=== PATIENT | female | born 1975 | race Caucasian/White ===

== ENCOUNTER 2024-08-16 00:44 | Emergency (ER) | payer BC, SELFPAY ==
[2024-08-16 00:44] VITALS: BMI 56.8
[2024-08-16 01:02] VITALS: BP 177/97; PULSE 76; RESP 18; TEMP 36.6; O2SAT 96
--- NOTE | 2024-08-16 01:11 | PD.EDRME ---
Rapid Medical Screening Exam RME Arrival date/time: 08/16/24 00:44 48 year old female present to Ed for c/o of dizziness and low blood glucose. I have greeted and performed a focused initial assessment of this patient. A comprehensive ED assessment and evaluation of the patient, analysis of all test results, and completion of the medical decision making process will be conducted by additional ED providers. Chief Complaint: Dizziness Time Seen by Provider: 08/16/24 00:48 Vital signs: Vital Signs Temperature 97.9 F 08/16/24 01:02 Pulse Rate 76 08/16/24 01:02 Respiratory Rate 18 08/16/24 01:02 Blood Pressure 177/97 H 08/16/24 01:02 Pulse Oximetry (%) 96 08/16/24 01:02 Oxygen Delivery Method Room Air 08/16/24 01:02
--- NOTE | 2024-08-16 01:12 | EKG_ITS ---
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
[2024-08-16 01:42] LABS: Basophils # (Auto) 0.1 Thou/mm3 (0.0-0.2); Basophils % (Auto) 2 % (0-2.5); Eosinophils % (Auto) 12 % (0-10); Hematocrit 42.8 % (36.0-46.0); Hemoglobin 14.3 g/dL (12.0-16.0); Immature Granulocytes % (Auto) 0 % (0-0); Immature Granulocytes Auto 0.02 Thou/mm3 (0.00-0.00); Lymphocytes # (Auto) 1.9 Thou/mm3 (1.0-4.8); Lymphocytes % (Auto) 23 % (10-50); Mean Corpuscular HGB Conc 33.4 g/dl (31.0-37.0); Mean Corpuscular Hemoglobin 27.4 pg (25.0-35.0); Mean Corpuscular Volume 82 fL (80-100); Monocytes # (Auto) 0.5 Thou/mm3 (0.0-0.8); Monocytes % (Auto) 6 % (0-12); Neutrophils # (Auto) 4.8 Thou/mm3 (1.8-7.7); Neutrophils % (Auto) 58 % (37-80); Nucleated Red Blood Cell % 0 /100 WBC (0); Platelet Count 243 Thou/mm3 (140-440); RDW Standard Deviation 39.9 fL (36.4-46.3); Red Blood Count 5.22 Miln/mm3 (4.00-5.20); White Blood Count 8.2 Thou/mm3 (3.6-11.0)
[2024-08-16 01:57] LABS: Alanine Aminotransferase 20 U/L (10-49); Albumin, Serum 4.2 gm/dL (3.5-5.0); Albumin/Globulin Ratio 1.4 (1.2-2.2); Alkaline Phosphatase 113 U/L (46-116); Anion Gap 7 (7-16); Aspartate Amino Transferase 21 U/L (0-34); BUN/Creatinine Ratio 23 Ratio (12-20); Bilirubin,Total 0.7 mg/dL (0.3-1.2); Blood Urea Nitrogen 23 mg/dL (9-23); Calcium 10.3 mg/dL (8.3-10.6); Calcium (Corrected) 10.3 mg/dL (8.5-10.1); Carbon Dioxide 30.4 mMol/L (20.0-31.0); Chloride 105 mMol/L (98-107); Estimated Creatinine Clearance 117.7 mL/min (>60); Globulin 3.1 gm/dL (2.3-3.5); Glucose 120 mg/dL (74-106); Osmolality,Calculated 287 (275-295); Potassium 3.4 mMol/L (3.4-5.1); Sodium 142 mMol/L (136-145); Total Protein 7.3 gm/dL (5.7-8.2); Troponin I < 0.020 ng/mL (0.0-0.045); eGFR > 60 See Note
[2024-08-16 02:08] LABS: HCG,Qualitative Serum Negative
--- NOTE | 2024-08-16 04:16 | EDNOTE_ITS ---
ED Dizzyness RME/HPI General Chief Complaint: Dizziness Stated Complaint: DIZZINESS AND LOW BLOOD SUGAR Time Seen by Provider: 08/16/24 00:48 Arrival date/time: 08/16/24 00:44 RME / HPI RME / HPI Narrative: 08/16/24 00:44 48 year old female present to Ed for c/o of dizziness and low blood glucose. I have greeted and performed a focused initial assessment of this patient. A comprehensive ED assessment and evaluation of the patient, analysis of all test results, and completion of the medical decision making process will be conducted by additional ED providers. ---- Dr. Stone?s Main ED Evaluation: 48yo female with a history of DM presents to the ED for a chief complaint of dizziness. Patient states she was working a double shift at work tonight when she suddenly started feeling dizzy, lightheaded, and nauseous. 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 She denies any falls or injuries. Denies any other associated symptoms. Patient states she feels better. Related Data Home Medications ?Medication ?Instructions ?Recorded ?Confirmed INFLAMMATION PILL ##0 10/31/13 INHALER - ASTHMA ##0 10/31/13 LORATADINE (ALLERGY) ##0 10/31/13 Benazepril Hcl * (LOTENSIN *) 10 mg PO HS #0 tabs 01/11/15 Hydrocodone/Acetaminophen * (NORCO 1 tab PO Q4H PRN PAIN #0 tabs 01/11/15 5/325 *) alprazolam 1 mg tablet (Xanax) 1 mg PO BID #0 tabs 01/11/15 Previous Rx's ?Medication ?Instructions ?Recorded albuterol sulfate 90 mcg/actuation 2 puff inhalation Q6HR PRN 11/06/15 aerosol inhaler (ProAir HFA) SHORTNESS OF BREATH #1 inh albuterol sulfate 90 mcg/actuation 2 puff inhalation Q6H PRN 05/22/19 aerosol inhaler (ProAir HFA) shortness of breath or wheezing #18 grams beclomethasone dipropionate 80 1 inh inhalation Q12H #10.6 grams 05/22/19 mcg/actuation HFA breath activated aerosol (Qvar RediHaler) ipratropium bromide 17 1 puff inhalation Q6H #12.9 grams 05/22/19 mcg/actuation HFA aerosol inhaler (Atrovent HFA) Allergies Allergy/AdvReac Type Severity Reaction Status Date / Time furosemide Allergy Unknown Unverified 05/22/19 20:19 BETABLOCKERS Allergy Unknown Uncoded 05/22/19 20:19 Review of Systems Review of Systems Systems Reviewed: All systems reviewed, normal except as documented Past Medical History Past Medical History CARDIAC: Negative Congestive Heart Failure RESPIRATORY: Positive Chronic Obstructive Pulmonary Disease (COPD) and Asthma GENITOURINARY: Negative Renal Disease ENDOCRINE: Negative Diabetes Mellitus Type 1 or Diabetes Mellitus Type 2 PSYCHO/SOCIAL: Positive Psychiatric Problems, Depression, Anxiety and Post Traumatic Stress Disorder Social History SMOKING STATUS: Never smoker ED Exam Narrative Physical exam: GENERAL APPEARANCE: alert and oriented x 4, well-developed, well-nourished, no acute distress VITALS: All vitals were reviewed and the pulse ox is 96% on room air, which is normal according to my interpretation. HEENT: Normocephalic, atraumatic; pupils equal, round, reactive to light; EOMI; mucous membranes pink, moist; oropharynx clear NECK: Supple LUNGS: CTABL; no wheezes, no rales, no rhonchi HEART: Regular rate, regular rhythm; normal S1, S2; no murmurs ABDOMEN: non distended; normal BS; soft, no tenderness, no guarding, no rebound; no masses, no organomegaly, no hernia BACK: no CVA tenderness EXTREMITIES: atraumatic; no edema NEUROLOGIC: awake; alert and oriented x4; cranial nerves II-XII grossly intact; no focal sensory or motor deficits PSYCHIATRIC: appropriate mood and affect SKIN: warm, dry, normal color; no rashes Course Quality Measures none Orders Category Date Time Status Blood glucose [Bedside Blood Glucose] NOW Care 08/16/24 01:12 Active EKG (ED ONLY) *Do not use* NOW Care 08/16/24 01:12 Completed EKG (ED Only) Stat Exams 08/16/24 01:12 Draft CBC Stat Lab 08/16/24 01:29 Completed CMP [Comprehensive Metabolic Panel] Stat Lab 08/16/24 01:29 Completed HCG,Qualitative Serum Stat Lab 08/16/24 01:29 Completed Troponin I Stat Lab 08/16/24 01:29 Completed Vital Signs Vital signs: Vital Signs Temperature 97.9 F 08/16/24 01:02 Pulse Rate 76 08/16/24 01:02 Respiratory Rate 18 08/16/24 01:02 Blood Pressure 177/97 H 08/16/24 01:02 Pulse Oximetry (%) 96 08/16/24 01:02 Oxygen Delivery Method Room Air 08/16/24 01:02 Dizziness MDM Narrative MDM Narrative:: Scribe Attestation: 08/16/24 Maryellen Miller am scribing for and in the presence of Dr. Stone. Patient data External records reviewed:: [facility] previous records (Per chart review, patient has no previous ED visits or admissions to this facility.) Clinical information provided by:: patient Social determinants that could affect healthcare access:: mental health Patient has the following chronic illnesses:: COPD, asthma, DM, anxiety How is presenting disease/condition affected by chronic disease/condition?: caused by Evaluation data The following diagnostics were reviewed and interpreted by me:: lab results and EKG tracing(s) Lab and/or radiology exams considered but not ordered:: none Interpretation Summary: CBC is normal, Glucose is 120, HCG is negative, according to my interpretation. EKG done at 0124, NSR, rate of 79, left axis deviation, no ectopy, Q wave in lead III, no STEMI, according to my interpretation. Medications / Prescriptions Medications or Prescriptions considered but not ordered:: none Medication administrations:: see above, if any Consultations Consultation(s) initiated? (list below): No Diagnosis Dizziness Differential Diagnosis: other (hypoglycemia, dehydration, electrolyte abnormality) Most likely diagnosis given after review of the tests above:: see below Admission Indicated Admission indicated?: not indicated Admission Request Was there a request for admission?: No Disposition Plan Disposition Plan: Discharge Discharge Attestation Discharge Attestation: The patient and all family members were given an opportunity to ask questions and understood the discharge instructions. Discharge instructions specifically effects, indications for sooner follow up or return to the emergency department, and the expected course of current diagnosis. Patient condition: Stable Discharge Plan Plan Patient Disposition: HOME (Self Care) Disposition Comment: Stable for discharge Patient condition on transfer: Stable Prescriptions/Referrals Prescriptions/Med Rec: No Action albuterol sulfate [ProAir HFA] 90 mcg/actuation HFA aerosol inhaler 2 puff INH Q6H PRN (Reason: shortness of breath or wheezing) Qty: 18 0RF Atrovent HFA 17 mcg/actuation HFA aerosol inhaler 1 puff INH Q6H Qty: 12.9 0RF Qvar RediHaler 80 mcg/actuation HFA aerosol breath activated 1 inh INH Q12H Qty: 10.6 0RF INFLAMMATION PILL Qty: 0 INHALER - ASTHMA Qty: 0 LORATADINE (ALLERGY) 10 MG tablet Qty: 0 alprazolam [Xanax] 1 MG tablet 1 mg PO BID Qty: 0 Benazepril Hcl * (LOTENSIN *) 10 MG tablet 10 mg PO HS Qty: 0 Hydrocodone/Acetaminophen * (NORCO 5/325 *) 1 TAB tablet 1 tab PO Q4H PRN (Reason: PAIN) Qty: 0 albuterol sulfate [ProAir HFA] 8.5 GM HFA aerosol inhaler 2 puff Inhalation Q6HR PRN (Reason: SHORTNESS OF BREATH) Qty: 1 0RF Referrals: Katy Cole MD [Primary Care Provider] - In 1 week Problem List Clinical Impression: Hypoglycemia Patient/Caregiver Discharge Instructions Discharge Activity: activity as tolerated Education Materials: Hypoglycemia (Low Blood Sugar), ED Hypoglycemia Oral Diabetic ... Additional Instructions: Please return to the emergency department if you notice have any worsening or any further medical problems Otherwise you should follow-up with your primary care doctor within the next several days Print Language: Faroese Stand Alone Forms: Angelica Award Info., Work/School Release, Patient Portal Info Letter
[2024-08-16 04:24] VITALS: BP 174/99; PULSE 64; RESP 15; TEMP 36.6; O2SAT 98
== END 2024-08-16 04:33 | disposition home or self-care (01) ==
PROVIDERS: Physician Assistant; Emergency Provider Emergency Medicine; PCP Family Medicine
DX: E11.649 Type 2 diabetes mellitus with hypoglycemia without coma (principal); J44.9 Chronic obstructive pulmonary disease, unspecified; F41.9 Anxiety disorder, unspecified
CPT/HCPCS: 36415; 80053; 84484; 84703; 85025; 93005; 99283

== ENCOUNTER → 2024-09-28 | Outpatient (CLI) | payer MEDICARE, SELFPAY | END | disposition home or self-care (01) | PROVIDERS: PCP Family Medicine; Referring Provider Family Medicine; Visit Provider Family Medicine | DX: N39.0 Urinary tract infection, site not specified (principal) | CPT/HCPCS: 87077; 87086; 87186 ==

== ENCOUNTER → 2024-11-25 | Outpatient (CLI) | payer BC, SELFPAY ==
[2024-11-25 10:49] LABS: Collection Type, Urine Clean Catch
[2024-11-25 11:08] LABS: Glucose Estimated Average 97 mg/dL (80-131)
[2024-11-25 11:13] LABS: Creatinine MALB Rnd Ur 136 mg/dL (30-125); Microalbumin Creat Ratio 49 mg/gCrea (<30); Microalbumin, Random Urine 66 mg/L (0-300)
[2024-11-25 11:16] LABS: Vitamin B12 673 pg/mL (211-911); Vitamin D 25 Hydroxy Total 44.7 ng/mL (7.3-40.2)
[2024-11-25 11:25] LABS: Alanine Aminotransferase 22 U/L (10-49); Albumin, Serum 3.7 gm/dL (3.5-5.0); Albumin/Globulin Ratio 1.2 (1.2-2.2); Alkaline Phosphatase 90 U/L (46-116); Anion Gap 11 (7-16); Aspartate Amino Transferase 24 U/L (0-34); BUN/Creatinine Ratio 16 Ratio (12-20); Bilirubin,Total 1.1 mg/dL (0.3-1.2); Blood Urea Nitrogen 14 mg/dL (9-23); Calcium 9.2 mg/dL (8.3-10.6); Calcium (Corrected) 9.4 mg/dL (8.5-10.1); Carbon Dioxide 24.4 mMol/L (20.0-31.0); Cardiac Risk Estimate 3.7 RATIO (3.7-5.6); Chloride 108 mMol/L (98-107); Cholesterol 167 mg/dL (132-200); Creatinine (Component) 0.9 mg/dL (0.6-1.3); Glucose 92 mg/dL (74-106); HDL Cholesterol 45 mg/dL (40-60); LDL Cholesterol,Calculated 93 mg/dL (0-130); Osmolality,Calculated 285 (275-295); Potassium 4.1 mMol/L (3.4-5.1); Sodium 143 mMol/L (136-145); Total Protein 6.7 gm/dL (5.7-8.2); Triglycerides 147 mg/dL (30-150); eGFR > 60 See Note
[2024-11-25 11:39] LABS: Bacteria,Urine 4+; Bilirubin,Urine Negative (Negative); Blood,Urine 1+ (Negative); Color,Urine Yellow (Lt Yel-Yel); Glucose, Urine Negative (Negative); Ketones,Urine Negative (Negative); Leukocyte Esterase,Urine Positive (Negative); Nitrite,Urine Positive (Negative); PH,Urine 6.5 (5.0-7.0); Protein,Urine Trace (Neg - Trace); RBC,Urine 29 /hpf (0-3); Squamous Epithelial Cell,Urine 4 /hpf (0-5); Urobilinogen,Urine Negative mg/dL (0.0-1.0); WBC,Urine 227 /hpf (0-5)
[2024-11-25 12:00] LABS: Clarity,Urine Hazy (Clear/Hazy); Culture Indicated,Urine Yes
== END | disposition home or self-care (01) ==
PROVIDERS: PCP Family Medicine; Referring Provider Physician Assistant; Visit Provider Physician Assistant
DX: Z00.00 Encounter for general adult medical examination without abnormal findings (principal); I10 Essential (primary) hypertension; E55.9 Vitamin D deficiency, unspecified; E78.5 Hyperlipidemia, unspecified; E11.9 Type 2 diabetes mellitus without complications
CPT/HCPCS: 36415; 80053; 80061; 81001; 82043; 82306; 82570; 82607; 83036; 84443; 87077; 87086; 87186

== ENCOUNTER 2024-12-20 11:18 | Outpatient (AMB) | payer BC, SELFPAY ==
[2024-12-20 11:43] VITALS: BP 123/82; PULSE 70; RESP 14; TEMP 35.8; O2SAT 95; BMI 53.8
--- NOTE | 2024-12-20 11:43 | AMB.GYNCLNOT ---
Vital Signs 12/20/24 11:43 Height 1.78 m Height Method Stated Weight 170.154 kg Weight Measurement Method Standing Scale BMI 53.8 BP 123/82 Blood Pressure Source Automatic Cuff Blood Pressure Location Left Upper Arm Position Sitting Respiration 14 Pulse 70 Pulse Source Monitor Temp 96.5 F L Temp Source Oral Pulse Oximetry (%) 95 Oxygen Delivery Method Room Air Allergies/Home Meds Allergies & Medications Allergies furosemide Allergy (Unknown, Verified 12/20/24 11:45) BETABLOCKERS Allergy (Unknown, Uncoded 12/20/24 11:45) Medication Reconciliation INFLAMMATION PILL ##0 10/31/13 [History Confirmed 12/20/24] INHALER - ASTHMA ##0 10/31/13 [History Confirmed 12/20/24] LORATADINE (ALLERGY) ##0 10/31/13 [History Confirmed 12/20/24] Benazepril Hcl * (LOTENSIN *) 10 mg PO HS #0 tabs 01/11/15 [History Confirmed 12/20/24] Hydrocodone/Acetaminophen * (NORCO 5/325 *) 1 tab PO Q4H PRN PAIN #0 tabs 01/11/15 [History Confirmed 12/20/24] alprazolam 1 mg tablet (Xanax) 1 mg PO BID #0 tabs 01/11/15 [History Confirmed 12/20/24] albuterol sulfate 90 mcg/actuation aerosol inhaler (ProAir HFA) 2 puff inhalation Q6HR PRN SHORTNESS OF BREATH #1 inh 11/06/15 [Rx Confirmed 12/20/24] albuterol sulfate 90 mcg/actuation aerosol inhaler (ProAir HFA) 2 puff inhalation Q6H PRN shortness of breath or wheezing #18 grams 05/22/19 [Rx Confirmed 12/20/24] beclomethasone dipropionate 80 mcg/actuation HFA breath activated aerosol (Qvar RediHaler) 1 inh inhalation Q12H #10.6 grams 05/22/19 [Rx Confirmed 12/20/24] ipratropium bromide 17 mcg/actuation HFA aerosol inhaler (Atrovent HFA) 1 puff inhalation Q6H #12.9 grams 05/22/19 [Rx Confirmed 12/20/24] Intake Visit Data Collection New Patient or Established: Established Patient (seen at [facility] within 3 years) Reason for Visit:: Follow-up for abnormal Pap smear results Seen by Clinical Staff ONLY (RN/MA): No Director Of Market Analysis Required: No Do You Feel Safe at Home: Yes Authorities Contacted: N/A PCP or OBGYN visit in last 3 months: Yes Hx Now: No Are you currently on any form of Control: No Pain Present Currently: No Pain Scale Used: Alexandra-Heck/Numerical Pain scale:: 0 Smoking Status Smoking Status: Never smoker Diagnostic Technologist history Diagnostic Technologist History Menstrual regularity: irregular Flow: heavy Monthly: No How many days does period last: 7 Age at menarche: 14 Currently sexually active: Yes Questionnaires Covid-19 Vaccine Questionnaire Has patient been vacinated for Covid-19 Have you been vacinated for Covid-19: Yes PHQ-9 PHQ-2 Over the last 2 weeks, how often have you been bothered by any of the following problems? 1. Little interest or pleasure in doing things: not at all 2. Feeling down, depressed, or hopeless: not at all Total score: 0 PHQ-9 3. Trouble falling or staying asleep, or sleeping too much: Not at all 4. Feeling tired or having little energy: Not at all 5. Poor appetite or overeating: Not at all 6. Feeling bad about yourself - or that you are a failure or have let yourself or your family down: Not at all 7. Trouble concentrating on things, such as reading the newspaper or watching television: Not at all 8. Moving or speaking so slowly that other people could have noticed? - Or the opposite - being so fidgety or restless that you have been moving around a lot more than usual: not at all 9. Thoughts that you would be better off or of hurting yourself in some way: Not at all Total score: 0 Source: Developed by Drs. Karthikeyan Tan, Mimi Jimenez, Vitaliy Langley and colleagues, with an educational anurag from [employer]. Depression screen completed yes Social History Living Situation History Marital Status: Single Lives With: Children Housing: House Tobacco History Smoking Status: Never smoker Second Hand Smoke Exposure: No Alcohol History Alcohol Intake: Never Domestic Abuse History Do You Feel Safe at Home: Yes Past Medical History Past Medical History Have you ever been diagnosed with any of the following: Cardiology Problems Congestive Heart Failure: No Hypertension: Yes Respiratory Problems Chronic Obstructive Pulmonary Disease (COPD): Yes Asthma: Yes Genital/Urinary Problems Renal Disease: No Reproductive Problems Previous Pregnancies: Yes Endocrine Problems Diabetes Mellitus Type 1: No Diabetes Mellitus Type 2: Yes Psychologic Problems Depression: Yes Anxiety: Yes Post Traumatic Stress Disorder: Yes Surgical History Additional Surgical History: c section History of Present Illness HPI Narrative Alicia presents for follow-up of an abnormal Pap smear result. This is her second abnormal Pap smear, with the most recent one performed in July 2023 and resulted in August 2023. The results showed low-grade squamous intraepithelial lesions (LSIL), with the possibility of high-grade lesions not excluded. Additionally, HPV subtypes 18 and 45 were positive. The patient reports that after her previous abnormal Pap smear, she was instructed to have a repeat Pap after one year. She was supposed to see another filter plant operator for follow-up, but she did not pursue this due to a negative experience with the office staff at Dr. Murphy's office ([facility]). The patient mentions a family history of cervical cancer in her mother, though she understands this is not hereditary. She also notes a family history of breast cancer in her maternal grandmother. 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, diagnosed July 2023 - Previous abnormal Pap smear Medications and Supplements - Diclofenac - Ibuprofen Family History - Mother: History of cervical cancer - Maternal grandmother: History of breast cancer Social History - Living Situation: Patient's daughter can provide transportation for medical procedures - Family Structure: Has a daughter Exam General General Appearance: alert, in no apparent distress and healthy appearing Head Head exam: atraumatic Neck Neck exam: Present normal inspection and trachea midline Chest Chest inspection: Present normal inspection and symmetric chest wall rise External exam: Present normal external exam; Absent tenderness Neuro Neurological exam: Present oriented X3 Psych Psychiatric exam: Present normal affect and normal mood Results Objective Laboratory: Laboratory, Imaging, and Diagnostic Test Results - Date: July 2023 (resulted August 2023) - Pap smear: Abnormal - Squamous intraepithelial lesions, low grade, cannot exclude high grade - HPV test: Positive - Subtypes 18 and 45 positive - Previous results: - Pap smear (2022): HPV-positive Assessment & Plan Diagnosis / Problem List (1) HGSIL (high grade squamous intraepithelial lesion) on Pap smear of cervix: Status: Acute (2) High risk HPV infection: Status: Acute (3) Low grade squamous intraepithelial lesion on cytologic smear of cervix (LGSIL): Status: Acute (4) Personal history of cervical dysplasia: Status: Acute Plan Alicia, a female patient with a history of abnormal Pap smears, presents for follow-up of recent abnormal Pap smear results showing low-grade squamous intraepithelial lesions (LSIL) with HPV 18 and 45 positivity. Abnormal Pap smear with HPV 18 and 45 positivity Assessment: Patient has a history of two abnormal Pap smears, with the most recent one from July 2023 showing low-grade squamous intraepithelial lesions (LSIL), cannot exclude high-grade lesions. HPV subtypes 18 and 45 were positive. These findings, especially the presence of high-risk HPV subtypes, warrant further evaluation and management to prevent progression to cervical cancer. Plan: - Perform cone biopsy/LEEP procedure - Outpatient procedure to be done in hospital setting - Use colposcope for cervical examination and biopsy of abnormal areas - Send excised tissue for pathological examination - Obtain insurance authorization for the procedure - Schedule procedure within 1-2 weeks - Arrange for post-procedure transportation due to sedation - Discuss sedation options: - Propofol or ketamine if minimal sedation desired - Post-procedure pain management: - Prescribe diclofenac or ibuprofen - Follow-up: - Annual Pap smears after procedure Office Procedures OB Clinic LOC & Office Proc's Nursing/Assessment Patient Status: Established Patient OB Clinic Nursing Assessment: Medication Reconciliation, Update PMH in EMR and Vital Signs OB Clinic Coordination of Care: Complex Care and Chronic Disease 1-5, Consent,records obtained, informed consent, Education Simp Pt/Fam, Lab and Imaging orders, Results/Orders obtained and Staff clarify orders Established Patient Charge Established Patient Point Assignment: 105 Established Patient Point Charge: EP Level 3 (80-115)
== END 2024-12-20 11:56 | disposition home or self-care (01) ==
LOC: HODSOBC 11:18
PROVIDERS: PCP Obstetrics & Gynecology; Referring Provider Obstetrics & Gynecology; Supervising Provider Obstetrics & Gynecology; Visit Provider Obstetrics & Gynecology
DX: R87.612 Low grade squamous intraepithelial lesion on cytologic smear of cervix (LGSIL) (principal); R87.810 Cervical high risk human papillomavirus (HPV) DNA test positive; Z87.410 Personal history of cervical dysplasia; Z80.49 Family history of malignant neoplasm of other genital organs; Z80.3 Family history of malignant neoplasm of breast
CPT/HCPCS: 99213; G0463

== ENCOUNTER → 2025-04-21 | Outpatient (CLI) | payer BC, SELFPAY ==
[2025-04-21 10:55] LABS: Basophils # (Auto) 0.1 Thou/mm3 (0.0-0.2); Basophils % (Auto) 2 % (0-2.5); Eosinophils # (Auto) 1.2 Thou/mm3 (0.0-0.5); Eosinophils % (Auto) 19 % (0-10); Hematocrit 43.6 % (36.0-46.0); Hemoglobin 14.1 g/dL (12.0-16.0); Immature Granulocytes Auto 0.00 Thou/mm3 (0.00-0.00); Lymphocytes # (Auto) 1.5 Thou/mm3 (1.0-4.8); Lymphocytes % (Auto) 24 % (10-50); Mean Corpuscular HGB Conc 32.3 g/dl (31.0-37.0); Mean Corpuscular Hemoglobin 28.0 pg (25.0-35.0); Mean Corpuscular Volume 87 fL (80-100); Monocytes # (Auto) 0.4 Thou/mm3 (0.0-0.8); Monocytes % (Auto) 6 % (0-12); Neutrophils # (Auto) 3.2 Thou/mm3 (1.8-7.7); Neutrophils % (Auto) 50 % (37-80); Nucleated Red Blood Cell # 0.00 Thou/mm3 (0.00-0.00); Nucleated Red Blood Cell % 0 /100 WBC (0); Platelet Count 223 Thou/mm3 (140-440); RDW Standard Deviation 39.8 fL (36.4-46.3); Red Blood Count 5.03 Miln/mm3 (4.00-5.20); White Blood Count 6.3 Thou/mm3 (3.6-11.0)
[2025-04-21 11:01] LABS: Glucose Estimated Average 105 mg/dL (80-131); Hemoglobin A1C 5.3 % Hgb (4.8-6.0)
[2025-04-21 11:15] LABS: Alanine Aminotransferase 15 U/L (10-49); Albumin, Serum 3.9 gm/dL (3.5-5.0); Albumin/Globulin Ratio 1.3 (1.2-2.2); Alkaline Phosphatase 106 U/L (46-116); Anion Gap 13 (7-16); Aspartate Amino Transferase 21 U/L (0-34); BUN/Creatinine Ratio 13 Ratio (12-20); Bilirubin,Total 1.6 mg/dL (0.3-1.2); Blood Urea Nitrogen 14 mg/dL (9-23); Calcium 10.6 mg/dL (8.3-10.6); Calcium (Corrected) 10.7 mg/dL (8.5-10.1); Carbon Dioxide 30.6 mMol/L (20.0-31.0); Cardiac Risk Estimate 3.5 RATIO (3.7-5.6); Chloride 103 mMol/L (98-107); Cholesterol 152 mg/dL (132-200); Creatinine (Component) 1.1 mg/dL (0.6-1.3); Globulin 3.0 gm/dL (2.3-3.5); Glucose 107 mg/dL (74-106); HDL Cholesterol 43 mg/dL (40-60); LDL Cholesterol,Calculated 80 mg/dL (0-130); Osmolality,Calculated 292 (275-295); Potassium 3.3 mMol/L (3.4-5.1); Sodium 147 mMol/L (136-145); Total Protein 6.9 gm/dL (5.7-8.2); Triglycerides 146 mg/dL (30-150); eGFR > 60 See Note
== END | disposition home or self-care (01) ==
LOC: COPL 09:25
PROVIDERS: PCP Family Medicine; Referring Provider Physician Assistant; Visit Provider Physician Assistant
DX: I10 Essential (primary) hypertension (principal); Z13.0 Encounter for screening for diseases of the blood and blood-forming organs and certain disorders involving the immune mechanism; E78.5 Hyperlipidemia, unspecified; E11.9 Type 2 diabetes mellitus without complications; R31.9 Hematuria, unspecified
CPT/HCPCS: 36415; 80053; 80061; 81001; 83036; 85025

== ENCOUNTER → 2025-04-22 | Outpatient (CLI) | payer BC, SELFPAY | END | disposition home or self-care (01) | LOC: SLDO 16:12 | PROVIDERS: PCP Physician Assistant; Referring Provider Physician Assistant; Visit Provider Physician Assistant | DX: S81.801A Unspecified open wound, right lower leg, initial encounter (principal); X58.XXXA Exposure to other specified factors, initial encounter | CPT/HCPCS: 87070; 87205 ==

== ENCOUNTER → 2025-04-22 | Outpatient (CLI) | payer BC, SELFPAY ==
--- NOTE | 2025-04-22 | XR_ITS ---
Examination: Tibia-Fibula, right , 2 views Technique: Tibia-fibula AP lateral 2 views Date and time of exam: April 22, 2025 1130 hours INDICATIONS: Patient fell one month ago with injury to the lower leg, lower leg pain. FINDINGS: No fracture or dislocation. IMPRESSION: No fracture or dislocation Soft tissue ossification posterior to the lower tibia fibula
== END | disposition home or self-care (01) ==
PROVIDERS: PCP Family Medicine; Referring Provider Physician Assistant; Visit Provider Physician Assistant
DX: S89.91XA Unspecified injury of right lower leg, initial encounter (principal); W19.XXXA Unspecified fall, initial encounter
CPT/HCPCS: 73590

== ENCOUNTER → 2025-05-03 | Outpatient (CLI) | payer BC, SELFPAY | END | disposition home or self-care (01) | LOC: SWHD 08:09 | PROVIDERS: PCP Family Medicine; Referring Provider Family Medicine; Visit Provider Surgery | DX: S81.801A Unspecified open wound, right lower leg, initial encounter (principal); X58.XXXA Exposure to other specified factors, initial encounter; R60.0 Localized edema; Z87.891 Personal history of nicotine dependence; J45.909 Unspecified asthma, uncomplicated; E11.40 Type 2 diabetes mellitus with diabetic neuropathy, unspecified; Z79.4 Long term (current) use of insulin; F50.20 Bulimia nervosa, unspecified | CPT/HCPCS: 11042; 99212; A9270; G0463 ==

== ENCOUNTER → 2025-05-10 | Outpatient (CLI) | payer BC, SELFPAY | END | disposition home or self-care (01) | LOC: SWHD 10:28 | PROVIDERS: PCP Family Medicine; Referring Provider Family Medicine; Visit Provider Student in an Organized Health Care Education/Training Program | DX: S81.801A Unspecified open wound, right lower leg, initial encounter (principal); X58.XXXA Exposure to other specified factors, initial encounter; R60.0 Localized edema; Z87.891 Personal history of nicotine dependence; J45.909 Unspecified asthma, uncomplicated; E11.40 Type 2 diabetes mellitus with diabetic neuropathy, unspecified; Z79.4 Long term (current) use of insulin; F50.20 Bulimia nervosa, unspecified | CPT/HCPCS: 11042; A9270 ==

== ENCOUNTER → 2025-05-17 | Outpatient (CLI) | payer BC, SELFPAY | END | disposition home or self-care (01) | LOC: SWHD 12:32 | PROVIDERS: PCP Family Medicine; Referring Provider Family Medicine; Visit Provider Student in an Organized Health Care Education/Training Program | DX: S81.801A Unspecified open wound, right lower leg, initial encounter (principal); X58.XXXA Exposure to other specified factors, initial encounter; R60.0 Localized edema; Z87.891 Personal history of nicotine dependence; J45.909 Unspecified asthma, uncomplicated; E11.40 Type 2 diabetes mellitus with diabetic neuropathy, unspecified; Z79.4 Long term (current) use of insulin; F50.20 Bulimia nervosa, unspecified | CPT/HCPCS: 99212; A9270; G0463 ==

== ENCOUNTER → 2025-05-18 | Outpatient (CLI) | payer BC, SELFPAY ==
--- NOTE | 2025-05-18 06:30 | EKG_ITS ---
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
[2025-05-18 10:38] VITALS: BMI 54.8
[2025-05-18 11:58] LABS: Basophils # (Auto) 0.1 Thou/mm3 (0.0-0.2); Basophils % (Auto) 2 % (0-2.5); Eosinophils # (Auto) 0.8 Thou/mm3 (0.0-0.5); Eosinophils % (Auto) 14 % (0-10); Hematocrit 41.1 % (36.0-46.0); Hemoglobin 13.6 g/dL (12.0-16.0); Immature Granulocytes Auto 0.01 Thou/mm3 (0.00-0.00); Lymphocytes # (Auto) 1.4 Thou/mm3 (1.0-4.8); Lymphocytes % (Auto) 23 % (10-50); Mean Corpuscular HGB Conc 33.1 g/dl (31.0-37.0); Mean Corpuscular Hemoglobin 28.3 pg (25.0-35.0); Mean Corpuscular Volume 85 fL (80-100); Monocytes # (Auto) 0.3 Thou/mm3 (0.0-0.8); Monocytes % (Auto) 5 % (0-12); Neutrophils # (Auto) 3.3 Thou/mm3 (1.8-7.7); Neutrophils % (Auto) 56 % (37-80); Nucleated Red Blood Cell # 0.00 Thou/mm3 (0.00-0.00); Nucleated Red Blood Cell % 0 /100 WBC (0); Platelet Count 202 Thou/mm3 (140-440); RDW Standard Deviation 41.8 fL (36.4-46.3); Red Blood Count 4.81 Miln/mm3 (4.00-5.20); White Blood Count 5.9 Thou/mm3 (3.6-11.0)
[2025-05-18 12:11] LABS: Alanine Aminotransferase 17 U/L (10-49); Albumin, Serum 4.0 gm/dL (3.5-5.0); Albumin/Globulin Ratio 1.4 (1.2-2.2); Alkaline Phosphatase 94 U/L (46-116); Anion Gap 12 (7-16); Aspartate Amino Transferase 26 U/L (0-34); BUN/Creatinine Ratio 11 Ratio (12-20); Bilirubin,Total 1.6 mg/dL (0.3-1.2); Blood Urea Nitrogen 11 mg/dL (9-23); Calcium 9.5 mg/dL (8.3-10.6); Calcium (Corrected) 9.5 mg/dL (8.5-10.1); Carbon Dioxide 27.9 mMol/L (20.0-31.0); Chloride 104 mMol/L (98-107); Creatinine (Component) 1.0 mg/dL (0.6-1.3); Estimated Creatinine Clearance 110.2 mL/min (>60); Globulin 2.9 gm/dL (2.3-3.5); Glucose 114 mg/dL (74-106); Osmolality,Calculated 287 (275-295); Potassium 2.9 mMol/L (3.4-5.1); Sodium 144 mMol/L (136-145); Total Protein 6.9 gm/dL (5.7-8.2); eGFR > 60 See Note
--- NOTE | 2025-05-18 12:13 | SUR.PREOP ---
Pt has a wound of right lower leg, she is being seen at the wound clinic weekly.
--- NOTE | 2025-05-18 12:53 | PD.ANESPROG ---
Documentation for date of: 05/18/25 BRIEF PRE-OP ANESTHESIA NOTE: This patient was scheduled for elective cervical loop excision procedure with Dr eDlgado tomorrow, however it's cancelled for tomorrow due to need for cardiology evaluation. Pre-op, RN reviewed her chart with me as routine and I noticed change in her EKG from previous. Current EKG shows 2nd deg AVB. She has h/o HTN, DM, COPD, and morbid obesity. I spoke with Dr Delgaod and recommended cardiac clearance and he agreed to cancel for tomorrow and he'll work on getting cardiology involved. I informed pre-op RN about the cancellation and to notify the patient with instructions. Terrence Wise MD
== END | disposition home or self-care (01) ==
LOC: SLAB 05-19 07:24
PROVIDERS: PCP Physician Assistant; Referring Provider Obstetrics & Gynecology; Visit Provider Obstetrics & Gynecology
DX: Z01.812 Encounter for preprocedural laboratory examination (principal); R87.612 Low grade squamous intraepithelial lesion on cytologic smear of cervix (LGSIL); B97.7 Papillomavirus as the cause of diseases classified elsewhere; R87.613 High grade squamous intraepithelial lesion on cytologic smear of cervix (HGSIL); Z87.410 Personal history of cervical dysplasia; Z01.810 Encounter for preprocedural cardiovascular examination
CPT/HCPCS: 36415; 80053; 84703; 85025; 86850; 86900; 86901; 93005

== ENCOUNTER → 2025-05-24 | Outpatient (CLI) | payer BC, SELFPAY | END | disposition home or self-care (01) | LOC: SWHD 14:49 | PROVIDERS: PCP Family Medicine; Referring Provider Family Medicine; Visit Provider Student in an Organized Health Care Education/Training Program | DX: S81.801A Unspecified open wound, right lower leg, initial encounter (principal); X58.XXXA Exposure to other specified factors, initial encounter; R60.0 Localized edema; J45.909 Unspecified asthma, uncomplicated; E11.40 Type 2 diabetes mellitus with diabetic neuropathy, unspecified; Z79.4 Long term (current) use of insulin; F50.20 Bulimia nervosa, unspecified; Z87.891 Personal history of nicotine dependence | CPT/HCPCS: 99213; A9270; G0463 ==

== ENCOUNTER → 2025-05-31 | Outpatient (CLI) | payer BC, SELFPAY | END | disposition home or self-care (01) | LOC: SWHD 12:39 | PROVIDERS: PCP Family Medicine; Referring Provider Family Medicine; Visit Provider Student in an Organized Health Care Education/Training Program | DX: S81.801A Unspecified open wound, right lower leg, initial encounter (principal); X58.XXXA Exposure to other specified factors, initial encounter; R60.0 Localized edema; Z87.891 Personal history of nicotine dependence; J45.909 Unspecified asthma, uncomplicated; E11.40 Type 2 diabetes mellitus with diabetic neuropathy, unspecified; Z79.4 Long term (current) use of insulin; F50.20 Bulimia nervosa, unspecified | CPT/HCPCS: 99212; A9270; G0463 ==

== ENCOUNTER → 2025-05-31 | Outpatient (CLI) | payer BC, SELFPAY ==
[2025-05-31 09:50] LABS: Alanine Aminotransferase 23 U/L (10-49); Albumin, Serum 4.2 gm/dL (3.5-5.0); Albumin/Globulin Ratio 1.3 (1.2-2.2); Alkaline Phosphatase 92 U/L (46-116); Anion Gap 10 (7-16); Aspartate Amino Transferase 25 U/L (0-34); BUN/Creatinine Ratio 9 Ratio (12-20); Bilirubin,Total 0.5 mg/dL (0.3-1.2); Blood Urea Nitrogen 11 mg/dL (9-23); Calcium 9.5 mg/dL (8.3-10.6); Calcium (Corrected) 9.5 mg/dL (8.5-10.1); Carbon Dioxide 28.0 mMol/L (20.0-31.0); Chloride 105 mMol/L (98-107); Creatinine (Component) 1.2 mg/dL (0.6-1.3); Globulin 3.2 gm/dL (2.3-3.5); Glucose 95 mg/dL (74-106); Osmolality,Calculated 284 (275-295); Potassium 3.8 mMol/L (3.4-5.1); Sodium 143 mMol/L (136-145); Total Protein 7.4 gm/dL (5.7-8.2); eGFR 55 See Note
== END | disposition home or self-care (01) ==
LOC: COPL 08:19
PROVIDERS: PCP Family Medicine; Referring Provider Physician Assistant; Visit Provider Physician Assistant
DX: E87.6 Hypokalemia (principal)
CPT/HCPCS: 36415; 80053

== ENCOUNTER → 2025-06-07 | Outpatient (CLI) | payer BC, SELFPAY | END | disposition home or self-care (01) | LOC: SWHD 10:37 | PROVIDERS: PCP Family Medicine; Referring Provider Family Medicine; Visit Provider Student in an Organized Health Care Education/Training Program | DX: S81.801A Unspecified open wound, right lower leg, initial encounter (principal); X58.XXXA Exposure to other specified factors, initial encounter; L97.812 Non-pressure chronic ulcer of other part of right lower leg with fat layer exposed; R60.0 Localized edema; Z87.891 Personal history of nicotine dependence; J45.909 Unspecified asthma, uncomplicated; E11.40 Type 2 diabetes mellitus with diabetic neuropathy, unspecified; Z79.4 Long term (current) use of insulin; F50.20 Bulimia nervosa, unspecified | CPT/HCPCS: 99212; A9270; G0463 ==

== ENCOUNTER → 2025-06-14 | Outpatient (CLI) | payer BC, SELFPAY ==
[2025-06-14 09:43] LABS: Alanine Aminotransferase 18 U/L (10-49); Albumin, Serum 4.2 gm/dL (3.5-5.0); Albumin/Globulin Ratio 1.4 (1.2-2.2); Alkaline Phosphatase 103 U/L (46-116); Anion Gap 10 (7-16); Aspartate Amino Transferase 25 U/L (0-34); BUN/Creatinine Ratio 12 Ratio (12-20); Bilirubin,Total 1.0 mg/dL (0.3-1.2); Blood Urea Nitrogen 13 mg/dL (9-23); Calcium 9.7 mg/dL (8.3-10.6); Calcium (Corrected) 9.7 mg/dL (8.5-10.1); Carbon Dioxide 31.4 mMol/L (20.0-31.0); Chloride 104 mMol/L (98-107); Creatinine (Component) 1.1 mg/dL (0.6-1.3); Globulin 2.9 gm/dL (2.3-3.5); Glucose 97 mg/dL (74-106); Osmolality,Calculated 288 (275-295); Potassium 3.7 mMol/L (3.4-5.1); Sodium 145 mMol/L (136-145); Total Protein 7.1 gm/dL (5.7-8.2); eGFR > 60 See Note
== END | disposition home or self-care (01) ==
LOC: COPL 08:41
PROVIDERS: PCP Physician Assistant; Referring Provider Physician Assistant; Visit Provider Physician Assistant
DX: E87.6 Hypokalemia (principal); N18.30 Chronic kidney disease, stage 3 unspecified
CPT/HCPCS: 36415; 80053

== ENCOUNTER → 2025-06-14 | Outpatient (CLI) | payer BC, SELFPAY | END | disposition home or self-care (01) | LOC: SWHD 11:01 | PROVIDERS: PCP Family Medicine; Referring Provider Family Medicine; Visit Provider Student in an Organized Health Care Education/Training Program | DX: S81.801A Unspecified open wound, right lower leg, initial encounter (principal); X58.XXXA Exposure to other specified factors, initial encounter; L97.812 Non-pressure chronic ulcer of other part of right lower leg with fat layer exposed; J45.909 Unspecified asthma, uncomplicated; E11.40 Type 2 diabetes mellitus with diabetic neuropathy, unspecified; Z79.4 Long term (current) use of insulin; F50.20 Bulimia nervosa, unspecified; R60.0 Localized edema | CPT/HCPCS: 99213; G0463 ==

== ENCOUNTER → 2025-06-23 | Outpatient (CLI) | payer BC, SELFPAY | END | disposition home or self-care (01) | LOC: SWHD 08:49 | PROVIDERS: PCP Family Medicine; Referring Provider Family Medicine; Visit Provider Student in an Organized Health Care Education/Training Program | DX: E11.621 Type 2 diabetes mellitus with foot ulcer (principal); L97.812 Non-pressure chronic ulcer of other part of right lower leg with fat layer exposed; S81.801A Unspecified open wound, right lower leg, initial encounter; X58.XXXA Exposure to other specified factors, initial encounter; Z87.891 Personal history of nicotine dependence; Z79.4 Long term (current) use of insulin; E66.9 Obesity, unspecified | CPT/HCPCS: 99213; A9270; G0463 ==

== ENCOUNTER → 2025-06-30 | Outpatient (CLI) | payer BC, SELFPAY | END | disposition home or self-care (01) | LOC: SWHD 07:58 | PROVIDERS: PCP Family Medicine; Referring Provider Family Medicine; Visit Provider Student in an Organized Health Care Education/Training Program | DX: E11.621 Type 2 diabetes mellitus with foot ulcer (principal); L97.812 Non-pressure chronic ulcer of other part of right lower leg with fat layer exposed; S81.801A Unspecified open wound, right lower leg, initial encounter; X58.XXXA Exposure to other specified factors, initial encounter; Z87.891 Personal history of nicotine dependence; Z79.4 Long term (current) use of insulin; E66.9 Obesity, unspecified | CPT/HCPCS: 97597; A9270 ==

== ENCOUNTER → 2025-07-07 | Outpatient (CLI) | payer BC, SELFPAY | END | disposition home or self-care (01) | LOC: SWHD 08:06 | PROVIDERS: PCP Family Medicine; Referring Provider Family Medicine; Visit Provider Student in an Organized Health Care Education/Training Program | DX: E11.621 Type 2 diabetes mellitus with foot ulcer (principal); L97.812 Non-pressure chronic ulcer of other part of right lower leg with fat layer exposed; S81.801A Unspecified open wound, right lower leg, initial encounter; X58.XXXA Exposure to other specified factors, initial encounter; Z87.891 Personal history of nicotine dependence; Z79.4 Long term (current) use of insulin; E66.9 Obesity, unspecified | CPT/HCPCS: 99213; A9270; G0463 ==

== ENCOUNTER → 2025-07-18 | Outpatient (CLI) | payer BC, SELFPAY ==
[2025-07-18 08:33] LABS: Misc Send Out* See Sep Rpt
[2025-07-18 09:16] LABS: Alanine Aminotransferase 17 U/L (10-49); Albumin, Serum 4.2 gm/dL (3.5-5.0); Albumin/Globulin Ratio 1.3 (1.2-2.2); Alkaline Phosphatase 106 U/L (46-116); Anion Gap 10 (7-16); Aspartate Amino Transferase 20 U/L (0-34); BUN/Creatinine Ratio 15 Ratio (12-20); Bilirubin,Total 0.7 mg/dL (0.3-1.2); Blood Urea Nitrogen 17 mg/dL (9-23); Calcium 9.5 mg/dL (8.3-10.6); Calcium (Corrected) 9.5 mg/dL (8.5-10.1); Carbon Dioxide 29.0 mMol/L (20.0-31.0); Cardiac Risk Estimate 3.6 RATIO (3.7-5.6); Chloride 104 mMol/L (98-107); Cholesterol 142 mg/dL (132-200); Creatinine (Component) 1.1 mg/dL (0.6-1.3); Globulin 3.3 gm/dL (2.3-3.5); Glucose 108 mg/dL (74-106); HDL Cholesterol 40 mg/dL (40-60); LDL Cholesterol,Calculated 75 mg/dL (0-130); Osmolality,Calculated 287 (275-295); Potassium 3.4 mMol/L (3.4-5.1); Sodium 143 mMol/L (136-145); Total Protein 7.5 gm/dL (5.7-8.2); Triglycerides 133 mg/dL (30-150); eGFR > 60 See Note
[2025-07-18 09:24] LABS: Glucose Estimated Average 103 mg/dL (80-131); Hemoglobin A1C 5.2 % Hgb (4.8-6.0)
[2025-07-18 09:33] LABS: HIV (1&2) Antibody Rapid Non-Reactive; Syphilis Nonreactive (Nonreactive)
[2025-07-18 10:06] LABS: Hepatitis B Core Antibody IgM Non Reactive (Non React); Hepatitis C Antibody Non Reactive (Non React)
[2025-07-22 06:19] LABS: HSV1 IgG Type Specific Ab* 39.60 INDEX; HSV2 IgG Type Specific Ab* 6.48 INDEX; Hepatitis B Core Ab,Total* NONREACTIVE
== END | disposition home or self-care (01) ==
LOC: COPL 08:03
PROVIDERS: PCP Family Medicine; Referring Provider Physician Assistant; Visit Provider Physician Assistant
DX: I10 Essential (primary) hypertension (principal); E78.5 Hyperlipidemia, unspecified; E11.9 Type 2 diabetes mellitus without complications; Z11.3 Encounter for screening for infections with a predominantly sexual mode of transmission
CPT/HCPCS: 36415; 80053; 80061; 83036; 86695; 86696; 86703; 86704; 86705; 86780; 86803; 87529

== ENCOUNTER → 2025-07-21 | Outpatient (CLI) | payer BC, SELFPAY | END | disposition home or self-care (01) | LOC: SWHD 07:53 | PROVIDERS: PCP Family Medicine; Referring Provider Family Medicine; Visit Provider Student in an Organized Health Care Education/Training Program | DX: E11.621 Type 2 diabetes mellitus with foot ulcer (principal); L97.812 Non-pressure chronic ulcer of other part of right lower leg with fat layer exposed; S81.801A Unspecified open wound, right lower leg, initial encounter; X58.XXXA Exposure to other specified factors, initial encounter; Z87.891 Personal history of nicotine dependence; Z79.4 Long term (current) use of insulin; E66.9 Obesity, unspecified | CPT/HCPCS: 99213; G0463 ==

== ENCOUNTER 2025-07-27 08:15 | Outpatient (AMB) | payer BC, SELFPAY ==
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
[2025-07-27 08:29] VITALS: BP 123/73; PULSE 71; RESP 18; TEMP 36.5; O2SAT 96; BMI 55.6
== END 2025-07-27 08:54 | disposition home or self-care (01) ==
LOC: HODSOBC 08:15
PROVIDERS: Supervising Provider Obstetrics & Gynecology; Visit Provider Obstetrics & Gynecology
DX: R87.613 High grade squamous intraepithelial lesion on cytologic smear of cervix (HGSIL) (principal); Z87.410 Personal history of cervical dysplasia; I10 Essential (primary) hypertension; E11.9 Type 2 diabetes mellitus without complications; Z87.891 Personal history of nicotine dependence; Z79.899 Other long term (current) drug therapy; Z79.4 Long term (current) use of insulin; Z79.85 Long-term (current) use of injectable non-insulin antidiabetic drugs
CPT/HCPCS: 99213; G0463

== ENCOUNTER 2025-07-28 08:05 | Day surgery (SDC) | payer BC, SELFPAY ==
[2025-07-27 10:27] VITALS: BMI 54.3
[2025-07-27 11:13] LABS: Basophils # (Auto) 0.1 Thou/mm3 (0.0-0.2); Basophils % (Auto) 2 % (0-2.5); Eosinophils # (Auto) 0.8 Thou/mm3 (0.0-0.5); Eosinophils % (Auto) 11 % (0-10); Hematocrit 41.4 % (36.0-46.0); Hemoglobin 13.5 g/dL (12.0-16.0); Immature Granulocytes Auto 0.01 Thou/mm3 (0.00-0.00); Lymphocytes # (Auto) 1.5 Thou/mm3 (1.0-4.8); Lymphocytes % (Auto) 19 % (10-50); Mean Corpuscular HGB Conc 32.6 g/dl (31.0-37.0); Mean Corpuscular Hemoglobin 27.7 pg (25.0-35.0); Mean Corpuscular Volume 85 fL (80-100); Monocytes # (Auto) 0.4 Thou/mm3 (0.0-0.8); Monocytes % (Auto) 5 % (0-12); Neutrophils # (Auto) 5.0 Thou/mm3 (1.8-7.7); Neutrophils % (Auto) 64 % (37-80); Nucleated Red Blood Cell # 0.00 Thou/mm3 (0.00-0.00); Nucleated Red Blood Cell % 0 /100 WBC (0); Platelet Count 222 Thou/mm3 (140-440); RDW Standard Deviation 41.8 fL (36.4-46.3); Red Blood Count 4.88 Miln/mm3 (4.00-5.20); White Blood Count 7.8 Thou/mm3 (3.6-11.0)
[2025-07-27 11:21] LABS: INR 1.0 (0.9-1.3); Partial Thromboplastin Time 24.2 Seconds (22.0-36.0); Prothrombin Time 10.3 Seconds (9.0-12.2)
[2025-07-27 11:26] LABS: Alanine Aminotransferase 17 U/L (10-49); Albumin, Serum 4.1 gm/dL (3.5-5.0); Albumin/Globulin Ratio 1.2 (1.2-2.2); Alkaline Phosphatase 90 U/L (46-116); Anion Gap 8 (7-16); Aspartate Amino Transferase 20 U/L (0-34); BUN/Creatinine Ratio 14 Ratio (12-20); Bilirubin,Total 0.7 mg/dL (0.3-1.2); Blood Urea Nitrogen 13 mg/dL (9-23); Calcium 9.4 mg/dL (8.3-10.6); Calcium (Corrected) 9.4 mg/dL (8.5-10.1); Carbon Dioxide 29.7 mMol/L (20.0-31.0); Chloride 105 mMol/L (98-107); Creatinine (Component) 0.9 mg/dL (0.6-1.3); Estimated Creatinine Clearance 125.8 mL/min (>60); Globulin 3.4 gm/dL (2.3-3.5); Glucose 82 mg/dL (74-106); Osmolality,Calculated 284 (275-295); Potassium 3.7 mMol/L (3.4-5.1); Sodium 143 mMol/L (136-145); Total Protein 7.5 gm/dL (5.7-8.2); eGFR > 60 See Note
[2025-07-28] VITALS (7 sets, daily range): BP systolic 117–148; BP diastolic 74–96; PULSE 64–80; RESP 12–20; TEMP 36.2; O2SAT 96–99; BMI 54.3
--- NOTE | 2025-07-28 11:01 | PD.GYNPROC ---
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 Identity was confirmed by double identifiers and she was placed on the operating table.? General anesthesia was administered and she was now positioned on Rancho stirrups in the dorsal lithotomy position.? The perineum was prepped in the usual sterile fashion and sterile drapes were applied.? A straight catheter was used to empty the bladder. A self-retaining speculum was introduced and the cervix was brought into adequate visualization.? The transitional zone was visualized all along the circumference of the cervix.? The cervix was grasped using a Allis Clamp and was placed under traction. A 20 mm loop electrode was used to do a single pass of the cervix and obtain a specimen that included the entire transitional zone.???The specimen was handed over to be sent to pathology. A ballpoint was used on the Bovie and the excision base was adequately cauterized.? The site was visualized and noted to be adequately hemostatic. All instruments were now withdrawn.? The speculum was removed.? The patient was undraped and the skin was cleaned.? General anesthesia was reversed and she was taken to the recovery room in a stable and awake condition.? The patient tolerated the entire procedure well.? No acute complications were encountered.? All instrument, sponge and lap counts were correct x2. Estimated blood loss (ml): 10 Complications: none Surgical staff Operation Date: 07/28/25 10:45 <No data on this case meets the specified criteria> Diagnosis Discharge Diagnosis (1) HGSIL (high grade squamous intraepithelial lesion) on Pap smear of cervix: Status: Acute Problem List Completed Was Problem List Reviewed/Reconciled?: Yes
--- NOTE | 2025-07-28 11:07 | SUR.PHASEI ---
pt received from OR in recovery bay 1. pt awake and alert, breathing unlabored on nc 5l. v/s stable. pt dressing peripad cdi. report received from Dr. Wise and Pedro LAI.
--- NOTE | 2025-07-28 11:37 | SUR.PHASEI ---
pt able to tolerate oral fluids without difficulty swallowing or nausea/vomiting.
--- NOTE | 2025-07-28 12:00 | SUR.PHASEII ---
pt awake and alert, breathing unlabored on room air. v/s stable. pt dressing peripad cdi. pt able to ambulate to wheelchair with steady gait. d/c instructions given with daughter Dayana in room, all questions answered. pt d/c via wheelchair with all belongings.
== END 2025-07-28 12:00 | disposition home or self-care (01) ==
PROVIDERS: PCP Family Medicine; Referring Provider Obstetrics & Gynecology; Visit Provider Obstetrics & Gynecology
PROC: 0UBC7ZZ Excision of Cervix, Via Natural or Artificial Opening (ICD-10-PCS; CPT 57522; principal; 2025-07-28 10:30)
DX: N72 Inflammatory disease of cervix uteri (principal)
CPT/HCPCS: 57522; 36415; 80053; 85025; 85610; 85730; A4649; J0131; J0330; J1100; J2704; J2765; J3010; J3490; A9270

== ENCOUNTER → 2025-08-04 | Outpatient (CLI) | payer BC, SELFPAY | END | disposition home or self-care (01) | LOC: SWHD 07:54 | PROVIDERS: PCP Family Medicine; Referring Provider Family Medicine; Visit Provider Surgery | DX: E11.621 Type 2 diabetes mellitus with foot ulcer (principal); L97.812 Non-pressure chronic ulcer of other part of right lower leg with fat layer exposed; S81.801A Unspecified open wound, right lower leg, initial encounter; X58.XXXA Exposure to other specified factors, initial encounter; Z87.891 Personal history of nicotine dependence; Z79.4 Long term (current) use of insulin; E66.9 Obesity, unspecified | CPT/HCPCS: 99212; A9270; G0463 ==